=== PATIENT | male | born 1980 | race African-American/Black ===

== ENCOUNTER 2017-11-11 19:52 | Observation (INO) | payer OTHER ==
[2017-11-11 22:24] VITALS: BMI 21.3
[2017-11-11] MEDS ORDERED: HEPARIN SODIUM,PORCINE 5,000 UNIT/ML 1 ML VIAL IV ONE (22:33)
[2017-11-11] MEDS ORDERED: HEPARIN SODIUM,PORCINE 5,000 UNIT/ML 1 ML VIAL IV PRN (22:33)
[2017-11-11] MEDS ORDERED: HEPARIN SOD,PORK IN 0.45% NACL 25,000 UNIT in 0.45% NACL 1 500ML.BAG IV SCH (22:45)
[2017-11-11] MEDS: DILTIAZEM 50 MG in SODIUM CHLORIDE 0.9% 40 ML IV SCH (22:50)
[2017-11-11 22:57] LABS: Basophils % (A) 0 %; Eosinophils # (A) 0.1 k/uL (0-0.7); Eosinophils % (A) 1 %; HCT 51.5 % (39.0-53.0); HGB 16.1 gm/dL (13.0-17.5); Lymphocytes # (A) 0.5 k/uL (1.0-4.8); Lymphocytes % (A) 6 %; MCH 31.7 pg (25.0-35.0); MCHC 31.3 g/dL (31.0-37.0); MCV 101.1 fL (80.0-100.0); Mean Platelet Volume 6.2; Monocytes # (A) 0.1 k/uL (0-1.0); Monocytes % (A) 1 %; Neutrophils # (A) 7.7 k/uL (1.3-7.7); Neutrophils % (A) 91 %; Platelet Count 315 k/uL (150-450); RBC 5.09 m/uL (4.30-5.90); RDW 12.7 % (11.5-15.5); WBC 8.4 k/uL (3.8-10.6)
[2017-11-11 23:08] LABS: Anion Gap 10 mmol/L; Blood Urea Nitrogen 12 mg/dL (9-20); Carbon Dioxide 25 mmol/L (22-30); Chloride 104 mmol/L (98-107); Glucose 178 mg/dL (74-99); Magnesium 1.8 mg/dL (1.6-2.3); Potassium 4.3 mmol/L (3.5-5.1); Sodium 139 mmol/L (137-145)
[2017-11-11 23:09] LABS: INR 1.1 (<1.2); Partial Thromboplastin Time 23.5 sec (22.0-30.0); Prothrombin Time 10.7 sec (9.0-12.0)
[2017-11-12] MEDS: DILTIAZEM 50 MG in SODIUM CHLORIDE 0.9% 40 ML IV SCH ×2 (02:20→06:57)
[2017-11-12 05:34] LABS: Basophils % (A) 0 %; Eosinophils # (A) 0.1 k/uL (0-0.7); Eosinophils % (A) 2 %; HCT 47.6 % (39.0-53.0); HGB 15.3 gm/dL (13.0-17.5); Lymphocytes # (A) 0.6 k/uL (1.0-4.8); Lymphocytes % (A) 9 %; MCH 32.7 pg (25.0-35.0); MCHC 32.2 g/dL (31.0-37.0); MCV 101.5 fL (80.0-100.0); Mean Platelet Volume 6.2; Monocytes # (A) 0.2 k/uL (0-1.0); Monocytes % (A) 3 %; Neutrophils # (A) 6.2 k/uL (1.3-7.7); Neutrophils % (A) 86 %; Platelet Count 295 k/uL (150-450); RBC 4.69 m/uL (4.30-5.90); RDW 12.4 % (11.5-15.5); WBC 7.2 k/uL (3.8-10.6)
[2017-11-12 06:39] LABS: Glucose,Whole Blood 111 mg/dL (75-99)
[2017-11-12] MEDS ORDERED: INSULIN ASPART 100 UNIT/ML 1 ML 10 ML VIAL SQ SCH (07:30)
[2017-11-12] MEDS ORDERED: predniSONE 20 MG TAB PO SCH (09:00)
[2017-11-12] MEDS: IPRATROPIUM-ALBUTEROL 3 ML NEB INHALATION SCH ×3 (09:17→16:17)
[2017-11-12] MEDS: FLUTICASONE 110 MCG INHALER INHALATION SCH ×2 (09:42→21:24)
--- NOTE | 2017-11-12 11:13 | CONS ---
MIGUEL Lozoya is a 37-year-old gentleman with history of asthma who presented to [facility] with shortness of breath and chest tightness. He thought he was having one of his asthma episodes. When they evaluated him there he was found to be in atrial fibrillation with rapid ventricular rate and he was started on IV heparin, Cardizem and transferred to [facility] for further care. At the time of my evaluation this morning, patient is still in atrial fibrillation with heart rate in the 110s. Blood pressure is normal at 120/70, respiratory rate is 16. There is no prior history of coronary artery disease, congestive heart failure or valvular heart disease. There is no prior history of cardiac arrhythmia. PAST MEDICAL HISTORY: Significant for asthma. MEDICATIONS: He apparently takes an inhaler. ALLERGIES: None. FAMILY HISTORY: Family history is significant for cardiac arrhythmia in his younger brother. SOCIAL HISTORY: He denies smoking, ETOH abuse or drug abuse. REVIEW OF SYSTEMS: HEENT is unremarkable. CARDIAC: As described above. RESPIRATORY: As described above. GI: Negative. GENITOURINARY: Negative. ALLERGY/IMMUNOLOGY: Negative. SKIN: Negative. MUSCULOSKELETAL: Negative. ENDOCRINE: Negative. HEMATOLOGIC: Negative. DERM: Negative. CONSTITUTIONAL: Negative. ONCOLOGICAL: Negative. Rest of the system review is not relevant. PHYSICAL EXAMINATION: On exam, patient is comfortable at rest. Afebrile. Heart rate is 110 beats per minute. Blood pressure is 120/72, respiratory rate is 18. Chest exam reveals bilateral occasional rhonchi. Heart exam reveals first and second heart sounds, irregular rhythm. No murmur. Abdomen is soft, nontender. Exam of extremities did not reveal any edema. Peripheral pulses are felt. ASSESSMENT: 1. Persistent atrial fibrillation with rapid ventricular rate. 2. Exacerbation of asthma. PLAN: His TSH is low at 0.357. I am going to check his free T3, T4. I will obtain a 2D echo to evaluate his LV function. Patient had breakfast this morning. I will continue him on heparin and Cardizem. If the LV function is normal, I will start him on Rythmol. If he does not convert to sinus rhythm, I am going to do a FIFI and cardioversion tomorrow morning. MMODL / IJN: [id number] /
[2017-11-12 12:13] LABS: T4, Free (Free Thyroxine) 1.06 ng/dL (0.78-2.19)
--- NOTE | 2017-11-12 12:19 | P.HPIM ---
History of Present Illness This is a pleasant 37 years old male with past medical history of asthma, surgery on the thyroid gland. Presents from [facility] because of feeling unwell with dyspnea and chest discomfort/pressure sensation of 1 week duration. The chest pain central knot radiating felt likely to have a heavy pain. But moderate in severity. In the very base which was noticed to be in A. fib and was started on Cardizem drip. He has with some cough with no phlegm of one-day duration. And left mid abdominal pain since last Sunday about 3/10 in severity. Nonspecific in character. Nonradiating. No associated urinary symptom or change in bowel habits. No nausea or vomiting Review of clamps in the chart and shows WBC 6.3K, hemoglobin 15.8, platelets 282. INR 1.1 d-dimer 0.19 which is within the reference [Ref. 0.19-0.59]. Sodium 141. Potassium 4. Calcium 8.3. Creatinine 1.1. B on 12. Liver function test was unremarkable. Magnesium 1.8. Troponin 0.017 which is within the reference range. Chest x-ray post-: normal chest exam. EKG showing ventricular rate of 155. QTC 452. With no significant ST-T changes Review of Systems CONSTITUTIONAL: No fever, no malaise, no fatigue. HEENT: No recent visual problems or hearing problems. Denied any sore throat. CARDIOVASCULAR: No orthopnea, PND, no palpitations, no syncope. PULMONARY: No shortness of breath, no cough, no hemoptysis. GASTROINTESTINAL: No diarrhea, no nausea, no vomiting, no abdominal pain. Normoactive bowel sounds. NEUROLOGICAL: No headaches, no weakness, no numbness. HEMATOLOGICAL: Denies any bleeding or petechiae. GENITOURINARY: Denies any burning micturition, frequency, or urgency. MUSCULOSKELETAL/RHEUMATOLOGICAL: Denies any joint pain, swelling, or any muscle pain. ENDOCRINE: Denies any polyuria or polydipsia. Past Medical History Past Medical History: Asthma History of Any Multi-Drug Resistant Organisms: None Reported Additional Past Surgical History / Comment(s): Thyroid operation, knee operation and foot operation Past Anesthesia/Blood Transfusion Reactions: No Reported Reaction Past Psychological History: No Psychological Hx Reported Smoking Status: Never smoker - Past Family History Father History Unknown: Yes Mother History Unknown: Yes Medications and Allergies Home Medications Medication Instructions Recorded Confirmed Type No Known Home Medications 11/12/17 11/12/17 History Allergies Allergy/AdvReac Type Severity Reaction Status Date / Time No Known Allergies Allergy Verified 11/12/17 09:46 Physical Exam Vitals: Vital Signs Temp Pulse Pulse Resp BP Pulse Ox 11/12/17 09:32 112 H 11/12/17 09:20 110 H 11/12/17 08:00 97.0 F L 118 H 16 119/71 97 11/12/17 04:00 97.4 F L 121 H 16 124/63 99 11/12/17 00:00 97.1 F L 153 H 16 105/69 99 11/11/17 22:25 140 H 11/11/17 22:01 98.4 F 124 H 18 134/79 98 Intake and Output 11/11/17 11/12/17 11/12/17 22:59 06:59 14:59 Intake Total 362.748 250 Balance 362.748 250 Intake: IV 170 10 0.9 160 Invasive Line 1 10 10 Intake, IV Titration 192.748 Amount Diltiazem 50 mg In Sodium 80.333 Chloride 0.9% 40 ml @ 5 MG/HR 5 mls/hr IV .Q10H [facility] Rx#:[id number] Heparin Sod,Pork in 0.45% 112.415 NaCl 25,000 unit In 0.45 % NaCl 1 500ml.bag @ 12 UNITS/KG/HR 15.26 mls/hr IV .Q24H [facility] Rx#: [id number] Oral 240 Other: Voiding Method Toilet Toilet # Voids 2 Weight 63.6 kg 68.4 kg GENERAL: The patient is alert and oriented x3, not in any acute distress. Well developed, well nourished. HEENT: Pupils are round and equally reacting to light. EOMI. No scleral icterus. No conjunctival pallor. Normocephalic, atraumatic. No pharyngeal erythema. No thyromegaly. CARDIOVASCULAR: S1 and S2 present. No murmurs, rubs, or gallops. PULMONARY: Chest is clear to auscultation, no wheezing or crackles. ABDOMEN: Soft, nontender, nondistended, normoactive bowel sounds. No palpable organomegaly. MUSCULOSKELETAL: No joint swelling or deformity. EXTREMITIES: No cyanosis, clubbing, or pedal edema. NEUROLOGICAL: Gross neurological examination did not reveal any focal deficits. SKIN: No rashes. Results CBC & Chem 7: 11/12/17 05:23 11/11/17 22:46 Labs: Abnormal Lab Results - Last 24 Hours (Table) 11/11/17 11/11/17 11/12/17 Range/Units 22:46 22:46 05:23 MCV 101.1 H (80.0-100.0) fL Lymphocytes # 0.5 L (1.0-4.8) k/uL APTT 35.3 H (22.0-30.0) sec Glucose 178 H (74-99) mg/dL POC Glucose (mg/dL) (75-99) mg/dL TSH (0.465-4.680) mIU/L 11/12/17 11/12/17 11/12/17 Range/Units 05:23 05:23 06:38 MCV 101.5 H (80.0-100.0) fL Lymphocytes # 0.6 L (1.0-4.8) k/uL APTT (22.0-30.0) sec Glucose (74-99) mg/dL POC Glucose (mg/dL) 111 H (75-99) mg/dL TSH 0.357 L (0.465-4.680) mIU/L Thrombosis Risk Factor Assmnt - Choose All That Apply Any of the Below Risk Factors Present?: No Other Risk Factors: No Other congenital or acquired thrombophilia - If yes, enter type in comment: No Thrombosis Risk Factor Assessment Level: Very Low Risk Assessment and Plan Assessment: Tachycardia, possible A. fib with RVR. Chest pain, rule out cardiac cause. Abdominal pain History of asthma: No connective tissue. Plan: This is a pleasant 37 years old male who presents because of possible A. fib with RVR. Patient was started on Cardizem drip. He has cardiology team evaluation. Also ask pulmonary to see him in a few office dyspnea, coughing in the view of history of asthma. Continue same treatment. Continue symptomatic treatment. Resume home medication. DVT and GI prophylaxis. Further recommendations based on the clinical course of the patient DVT prophylaxis: Subcutaneous heparin, currently on heparin drip GI prophylaxis: Pepcid PT/OT: Pending Recommendations based on the clinical course of the patient
[2017-11-12] MEDS ORDERED: PROPAFENONE 150 MG TAB PO STA (12:34)
--- NOTE | 2017-11-12 12:34 | ECHOF ---
Referral Reason:LV function MEASUREMENTS -------- HEIGHT: 172.7 cm WEIGHT: 68.0 kg BP: 124/63 RVIDd: 2.8 cm (< 3.3) IVSd: 1.1 cm (0.6 - 1.1) LVIDd: 3.9 cm (3.9 - 5.3) LVPWd: 1.2 cm (0.6 - 1.1) IVSs: 1.5 cm LVIDs: 2.6 cm LVPWs: 1.5 cm LA Diam: 3.1 cm (2.7 - 3.8) LAESV Index (A-L): 25.45 ml/m Ao Diam: 3.5 cm (2.0 - 3.7) AV Cusp: 2.6 cm (1.5 - 2.6) MV EXCURSION: 23.948 mm (> 18.000) MV EF SLOPE: 191 mm/s (70 - 150) EPSS: 0.4 cm RAP: 5.00 mmHg RVSP: 17.74 mmHg FINDINGS -------- Atrial fibrillation. This was a technically good study. The left ventricular size is normal. There is borderline concentric left ventricular hypertrophy. Overall left ventricular systolic function is low-normal with, an EF between 50 - 55 %. The right ventricle is normal in size. Normal LA size by volume 22+/-6 ml/m2. The right atrium is normal in size. The aortic valve is trileaflet and appears structurally normal. The mitral valve is normal. Mild mitral regurgitation is present. The tricuspid valve appears structurally normal. Mild tricuspid regurgitation present. Right vent ricular systolic pressure is normal at < 35 mmHg. Trace/mild (physiologic) pulmonic regurgitation. The aortic root size is normal. Normal inferior vena cava with normal inspiratory collapse consistent with estimated right atrial pre ssure of 5 mmHg. There is no pericardial effusion. CONCLUSIONS -------- 1. Atrial fibrillation. 2. This was a technically good study. 3. The left ventricular size is normal. 4. There is borderline concentric left ventricular hypertrophy. 5. Overall left ventricular systolic function is low-normal with, an EF between 50 - 55 %. 6. Normal LA size by volume 22+/-6 ml/m2. 7. The aortic valve is trileaflet and appears structurally normal. 8. Mild mitral regurgitation is present. 9. Mild tricuspid regurgitation present. 10. Right ventricular systolic pressure is normal at < 35 mmHg. 11. Trace/mild (physiologic) pulmonic regurgitation. 12. The aortic root size is normal. 13. Normal inferior vena cava with normal inspiratory collapse consistent with estimated right atrial pressure of 5 mmHg. 14. There is no pericardial effusion. [employer]PERATIONS INTELLIGENCE OFFICER: Amaya Pineda RDCS
[2017-11-12] MEDS: APIXABAN 5 MG TAB PO SCH ×2 (13:15→19:53)
--- NOTE | 2017-11-12 18:12 | P.CNPUL ---
History of Present Illness Consult date: 11/12/17 Reason for consult: dyspnea History of present illness: 37-year-old -[place] male patient with history of mild intermittent/ persistent bronchial asthma and a previous history of thyroid surgery many years back, questionable partial thyroidectomy is been experiencing shortness of breath for almost a week. The patient reported increased dyspnea and heart racing. No cough. No sputum production. No angina. No significant wheezing. No pleurisy. He ultimately was getting worse as the patient was becoming more short of breath and he presents himself to [facility] with was found to be in atrial fibrillation with rapid ventricular response. He was placed on a Cardizem drip and he was transferred to [facility]. The patient currently is on a Cardizem drip at 10 mg an hour. At around 1 PM, the patient converted into normal sinus rhythm. The patient is white cell count is not elevated. D-dimer is at 1.1. Chest x-ray done at [facility] was within normal limits. The cardiac enzymes came back negative 3 including troponins. Thyroid function tests are within normal limits. He apparently part is with friends and drinks 15 pack year on partly days only and his last artery was approximately a week ago. No previous history of DVT or pulmonary embolism. Denies having any substance abuse. He works in [place] as a [employer] job. As for his asthma, reports her childhood asthma. He thought his shortness of breath was related to asthma and the patient was using his albuterol inhaler up to 7-8 times a day and this was making her more tachycardic. No swelling lower extremities. No other complaints otherwise for now. No previous hospitalization for any asthma related complications. No his of systemic steroids for bronchial asthma. No other complaints otherwise for now Review of Systems Constitutional: Denies chills, Denies fever Eyes: denies blurred vision, denies bulging eye, denies decreased vision, denies diplopia Ears: deny: decreased hearing, ear discharge, earache, tinnitus Ears, nose, mouth and throat: Denies headache, Denies sore throat Cardiovascular: Reports dyspnea on exertion, Reports rapid heart beat Respiratory: Reports dyspnea Gastrointestinal: Denies abdominal pain, Denies diarrhea, Denies nausea, Denies vomiting Genitourinary: Reports as per HPI Musculoskeletal: Denies myalgias Musculoskeletal: absent: ankle pain, ankle stiffness, ankle swelling Integumentary: Denies pruritus, Denies rash Neurological: Denies numbness, Denies weakness Psychiatric: Reports as per HPI Endocrine: Denies fatigue, Denies weight change Hematologic/Lymphatic: Reports as per HPI Allergic/Immunologic: Reports as per HPI Past Medical History Past Medical History: Asthma History of Any Multi-Drug Resistant Organisms: None Reported Additional Past Surgical History / Comment(s): Thyroid operation, knee operation and foot operation Past Anesthesia/Blood Transfusion Reactions: No Reported Reaction Past Psychological History: No Psychological Hx Reported Smoking Status: Never smoker - Past Family History Father History Unknown: Yes Mother History Unknown: Yes Medications and Allergies Home Medications Medication Instructions Recorded Confirmed Type No Known Home Medications 11/12/17 11/12/17 History Allergies Allergy/AdvReac Type Severity Reaction Status Date / Time No Known Allergies Allergy Verified 11/12/17 09:46 Physical Exam Vitals: Vital Signs Temp Pulse Pulse Resp BP Pulse Ox 11/12/17 16:31 84 11/12/17 16:17 88 11/12/17 16:00 97.2 F L 87 16 122/78 97 11/12/17 13:12 100 11/12/17 13:00 100 11/12/17 12:00 97.1 F L 91 16 125/82 97 11/12/17 09:32 112 H 11/12/17 09:20 110 H 11/12/17 08:00 97.0 F L 118 H 16 119/71 97 11/12/17 04:00 97.4 F L 121 H 16 124/63 99 11/12/17 00:00 97.1 F L 153 H 16 105/69 99 11/11/17 22:25 140 H 11/11/17 22:01 98.4 F 124 H 18 134/79 98 Intake and Output 11/12/17 11/12/17 11/12/17 06:59 14:59 22:59 Intake Total 362.748 600 250 Balance 362.748 600 250 Intake: IV 170 120 10 0.9 160 100 Invasive Line 1 10 20 10 Intake, IV Titration 192.748 Amount Diltiazem 50 mg In Sodium 80.333 Chloride 0.9% 40 ml @ 5 MG/HR 5 mls/hr IV .Q10H [facility] Rx#:[id number] Heparin Sod,Pork in 0.45% 112.415 NaCl 25,000 unit In 0.45 % NaCl 1 500ml.bag @ 12 UNITS/KG/HR 15.26 mls/hr IV .Q24H [facility] Rx#: [id number] Oral 480 240 Other: Voiding Method Toilet # Voids 2 1 Weight 68.4 kg The patient appeared well nourished and normally developed. Vital signs as documented. Head exam is unremarkable. No scleral icterus or corneal arcus noted. Neck is without jugular venous distension, thyromegaly, or carotid bruits. Carotid upstrokes are brisk bilaterally. Lungs are clear to auscultation and percussion. Cardiac exam reveals the PMI to be normally sized and situated. Rhythm is regular. First and second heart sounds normal. No murmurs, rubs or gallops. Abdominal exam reveals normal bowel sounds, no masses , no organomegaly and no aortic enlargement. Extremities are nonedematous and both femoral and pedal pulses are normal. Skin the patient has a scar of the previous thyroid surgery over the anterior neck. Otherwise the rest of the skin examination is within normal limits. Neurologically the patient is awake and alert and there is no focal neurological deficits. Results - Laboratory Findings CBC and BMP: 11/12/17 05:23 11/11/17 22:46 PT/INR, D-dimer PT 10.7 sec (9.0-12.0) 11/11/17 22:46 INR 1.1 (<1.2) 11/11/17 22:46 Abnormal lab findings: Abnormal Labs 11/11/17 11/11/17 11/12/17 22:46 22:46 05:23 MCV 101.1 H Lymphocytes # 0.5 L APTT 35.3 H Glucose 178 H POC Glucose (mg/dL) TSH 11/12/17 11/12/17 11/12/17 05:23 05:23 06:38 MCV 101.5 H Lymphocytes # 0.6 L APTT Glucose POC Glucose (mg/dL) 111 H TSH 0.357 L 11/12/17 10:55 MCV Lymphocytes # APTT 35.2 H Glucose POC Glucose (mg/dL) TSH Assessment and Plan Plan: Assessment 1 new-onset atrial fibrillation with rapid ventricular response. Echocardiogram is within normal limits. Thyroid function tests are also within normal limits. The patient converted spontaneously and patient is currently on Cardizem drip at 10 mg an hour. The patient was also started on anticoagulation. 2 chronic bronchial asthma currently inactive in stable 3 shortness of breath secondary to #1 Plan Management of atrial fibrillation per cardiology. Thyroid function test is within normal limits. Echocardiogram is within normal limits. Outpatient asthma management and use of inhaled corticosteroids is reasonable with a rapid prednisone burst taper at time of discharge. Kept on the albuterol to when necessary only without the need to put scheduled medications special that the patient's lungs are clear and the patient does not have any active bronchospasm wheezing.
[2017-11-12] MEDS: FAMOTIDINE 20 MG/2 ML VIAL IV SCH (19:52)
[2017-11-12] MEDS ORDERED: MELATONIN 3 MG TABLET PO PRN (20:57)
[2017-11-13] MEDS: DILTIAZEM 50 MG in SODIUM CHLORIDE 0.9% 40 ML IV SCH (00:11)
[2017-11-13 00:23] VITALS: RESP 16
[2017-11-13] MEDS: IPRATROPIUM-ALBUTEROL 3 ML NEB INHALATION PRN ×2 (03:38→08:28)
[2017-11-13 07:25] LABS: Basophils % (A) 0 %; Eosinophils # (A) 0.1 k/uL (0-0.7); Eosinophils % (A) 1 %; HCT 45.7 % (39.0-53.0); HGB 14.8 gm/dL (13.0-17.5); Lymphocytes # (A) 1.8 k/uL (1.0-4.8); Lymphocytes % (A) 17 %; MCH 32.7 pg (25.0-35.0); MCHC 32.4 g/dL (31.0-37.0); MCV 100.9 fL (80.0-100.0); Mean Platelet Volume 6.5; Monocytes # (A) 0.7 k/uL (0-1.0); Monocytes % (A) 7 %; Neutrophils # (A) 7.5 k/uL (1.3-7.7); Neutrophils % (A) 74 %; Platelet Count 263 k/uL (150-450); RBC 4.52 m/uL (4.30-5.90); RDW 12.7 % (11.5-15.5); WBC 10.2 k/uL (3.8-10.6)
[2017-11-13] MEDS: FLUTICASONE 110 MCG INHALER INHALATION SCH (08:28)
[2017-11-13] MEDS ORDERED: predniSONE 10 MG TAB PO SCH (09:00)
[2017-11-13] MEDS ORDERED: PROPAFENONE 150 MG TAB PO SCH (09:00)
[2017-11-13] MEDS: APIXABAN 5 MG TAB PO SCH (09:07)
[2017-11-13] MEDS: FAMOTIDINE 20 MG/2 ML VIAL IV SCH (09:07)
--- NOTE | 2017-11-13 12:27 | P.PN ---
Subjective Progress Note Date: 11/13/17 Principal diagnosis: New onset A. fib, chronic bronchial asthma 37-year-old -[place] male patient with history of mild intermittent/ persistent bronchial asthma and a previous history of thyroid surgery many years back, questionable partial thyroidectomy is been experiencing shortness of breath for almost a week. The patient reported increased dyspnea and heart racing. No cough. No sputum production. No angina. No significant wheezing. No pleurisy. He ultimately was getting worse as the patient was becoming more short of breath and he presents himself to [facility] with was found to be in atrial fibrillation with rapid ventricular response. He was placed on a Cardizem drip and he was transferred to [facility]. The patient currently is on a Cardizem drip at 10 mg an hour. At around 1 PM, the patient converted into normal sinus rhythm. The patient is white cell count is not elevated. D-dimer is at 1.1. Chest x-ray done at [facility] was within normal limits. The cardiac enzymes came back negative 3 including troponins. Thyroid function tests are within normal limits. He apparently part is with friends and drinks 15 pack year on partly days only and his last artery was approximately a week ago. No previous history of DVT or pulmonary embolism. Denies having any substance abuse. He works in [place] as a [employer] job. As for his asthma, reports her childhood asthma. He thought his shortness of breath was related to asthma and the patient was using his albuterol inhaler up to 7-8 times a day and this was making her more tachycardic. No swelling lower extremities. No other complaints otherwise for now. No previous hospitalization for any asthma related complications. No his of systemic steroids for bronchial asthma. No other complaints otherwise for now On 11/13/2017 patient seen in follow-up on selective care unit. We'll order to sinus rhythm last night, and he remains in sinus rhythm. His rate is controlled , 88-90 BPM, he is afebrile, hemodynamically stable, room air pulse ox is 98%, no shortness of breath or chest pain. No wheezing, or coughing. Patient was started on Eliquis 5 mg twice daily, Rythmol by cardiology. From our standpoint patient is stable, he remains on prednisone at 30 mg daily, Flovent twice daily, and nebulized bronchodilators on as-needed basis. Patient is being discharged home today. Follow-up in the office with Dr. Voss in one week. Objective - Vital Signs Vital signs: Vital Signs Temp 97.4 F L 11/13/17 08:00 Pulse 90 11/13/17 08:47 Resp 16 11/13/17 08:29 BP 138/93 11/13/17 08:00 Pulse Ox 98 11/13/17 08:00 Intake & Output 11/12/17 11/13/17 11/13/17 18:59 06:59 18:59 Intake Total 900 20 Balance 900 20 Weight 68.2 kg Intake: IV 130 20 0.9 100 Invasive Line 1 30 10 Invasive Line 2 10 Intake, IV Titration 50 Amount Diltiazem 50 mg In Sodium 50 Chloride 0.9% 40 ml @ 5 MG/HR 5 mls/hr IV .Q10H [facility] Rx#:[id number] Oral 720 Other: Voiding Method Toilet # Voids 1 1 - Exam GENERAL EXAM: Alert, wasn't 37-year-old -[place] male comfortable in no apparent distress. HEAD: Normocephalic/atraumatic. EYES: Normal reaction of pupils, equal size. Conjunctiva pink, sclera white. NOSE: Clear with pink turbinates. THROAT: No erythema or exudates. NECK: No masses, no JVD, no thyroid enlargement, no adenopathy. CHEST: No chest wall deformity. Symmetrical expansion. LUNGS: Equal air entry with no crackles, wheeze, rhonchi or dullness. CVS: Regular rate and rhythm, normal S1 and S2, no gallops, no murmurs, no rubs ABDOMEN: Soft, nontender. No hepatosplenomegaly, normal bowel sounds, no guarding or rigidity. EXTREMITIES: No clubbing, no edema, no cyanosis, 2+ pulses and upper and lower extremities. MUSCULOSKELETAL: Muscle strength and tone normal. SPINE: No scoliosis or deformity SKIN: No rashes CENTRAL NERVOUS SYSTEM: Alert and oriented -3. No focal deficits, tone is normal in all 4 extremities. PSYCHIATRIC: Alert and oriented -3. Appropriate affect. Intact judgment and insight. - Labs CBC & Chem 7: 11/13/17 06:53 11/11/17 22:46 Labs: Abnormal Lab Results - Last 24 Hours (Table) 11/13/17 Range/Units 06:53 MCV 100.9 H (80.0-100.0) fL Assessment and Plan Plan: Assessment: 1 new-onset atrial fibrillation with rapid ventricular response. Echocardiogram is within normal limits. Thyroid function tests are also within normal limits. The patient converted spontaneously and patient is currently on Cardizem drip at 10 mg an hour. The patient was also started on anticoagulation. 2 chronic bronchial asthma currently inactive in stable 3 shortness of breath secondary to #1 Plan: Patient is stable for discharge from pulmonary perspective. No shortness of breath, no coughing, no wheezing, he is on room air, he is ambulating, no pulmonary complaints. He remains in sinus rhythm, he was started on Eliquis and Rythmol by cardiology. Patient is stable for discharge home on Flovent inhaler twice daily, in addition to his Proventil on as needed basis. Patient will need to complete his prednisone taper. Follow-up with Dr. Voss in the office in one week. I performed a history & physical examination of the patient and discussed their management with my nurse practitioner, Deja Grossman. I reviewed the nurse practitioner's note and agree with the documented findings and plan of care. Lung sounds are essentially clear. The findings and the impression was discussed with the patient. I attest to the documentation by the nurse practitioner. Time with Patient: Less than 30
--- NOTE | 2017-11-13 12:34 | P.PN ---
Subjective Progress Note Date: 11/13/17 37-year-old -[place] male patient with history of mild intermittent/ persistent bronchial asthma and a previous history of thyroid surgery many years back, questionable partial thyroidectomy is been experiencing shortness of breath for almost a week. The patient reported increased dyspnea and heart racing. He presented to [facility] and was found to be in atrial fibrillation with a rapid ventricular response, initiated on a Cardizem drip and transferred here. Patient was seen in consultation yesterday by Dr. Cedillo. His echo revealed a normal left ventricular systolic function and patient was given a dose of 300 mg of Rythmol yesterday. He converted last evening to normal sinus rhythm and remains in a normal sinus rhythm this morning. For anticoagulation which she is covered for, we will also start the patient on Rythmol 150 mg by mouth 3 times a day today. Overall the patient feels well, states that his breathing is stable. No palpitations. Blood pressure 138/90 with a heart rate in the 80s, 98% on room air. TSH level was 0.35, T4 and T3 normal. Objective - Vital Signs Vital signs: Vital Signs Temp 97.4 F L 11/13/17 08:00 Pulse 90 11/13/17 08:47 Resp 16 11/13/17 08:29 BP 138/93 11/13/17 08:00 Pulse Ox 98 11/13/17 08:00 Intake & Output 11/12/17 11/13/17 11/13/17 18:59 06:59 18:59 Intake Total 900 20 Balance 900 20 Weight 68.2 kg Intake: IV 130 20 0.9 100 Invasive Line 1 30 10 Invasive Line 2 10 Intake, IV Titration 50 Amount Diltiazem 50 mg In Sodium 50 Chloride 0.9% 40 ml @ 5 MG/HR 5 mls/hr IV .Q10H PANKAJ Rx#:[id number] Oral 720 Other: Voiding Method Toilet # Voids 1 1 - Exam PHYSICAL EXAMINATION: GENERAL: 37-year-old -[place] gentleman in no acute distress at the time of my examination HEENT: Head is atraumatic, normocephalic. Pupils equal, round. Sclera anicteric. Conjunctiva are clear. Mucous membranes of the mouth are moist. Neck is supple. There is no elevated jugular venous pressure. No carotid bruit is heard. HEART EXAMINATION: Heart S1, S2 normal. No murmur or gallop heard. CHEST EXAMINATION: Lungs are clear to auscultation and precussion. No chest wall tenderness is noted on palpation or with deep breathing. ABDOMEN: Soft, nontender. Bowel sounds are heard. No organomegaly noted. EXTREMITIES: 2+ peripheral pulses with no evidence of peripheral edema and no calf tenderness noted. NEUROLOGIC patient is awake, alert and oriented X3. . - Labs CBC & Chem 7: 11/13/17 06:53 11/11/17 22:46 Labs: Abnormal Lab Results - Last 24 Hours (Table) 11/13/17 Range/Units 06:53 MCV 100.9 H (80.0-100.0) fL Assessment and Plan Plan: Assessment and plan #1 atrial fibrillation with rapid ventricular response, paroxysmal #2 asthma exacerbation Plan Echocardiogram with Doppler study was performed which revealed a normal left ventricular systolic function. We will put the patient on Rythmol 150 mg by mouth every 8 hourly today. Continue Eliquis 5 mg one tablet by mouth twice a day which the patient has coverage for. A follow-up appointment will be made in the office post discharge. DNP note has been reviewed, I agree with a documented findings and plan of care. Patient was seen and examined.
--- NOTE | 2017-11-13 13:14 | P.DS ---
Providers Date of admission: 11/11/17 21:58 Attending physician: Lisa Joseph Consults: 11/11/17 22:26 Consult Physician Routine Consulting Provider: Lalit Soto Consult Reason/Comments: new onset A-Fib RVR Do you want consulting provider notified?: Yes Placement Type Exists?: Yes 11/12/17 12:04 Consult Physician Routine Consulting Provider: Michelle Voss Consult Reason/Comments: asthma Do you want consulting provider notified?: Yes Primary care physician: Stated None Hospital Course: This is a pleasant 37 years old male with past medical history of asthma, surgery on the thyroid gland. Presents from [facility] because of feeling unwell with dyspnea and chest discomfort/pressure sensation of 1 week duration. The chest pain central not radiating felt likely to have a heavy pain. But moderate in severity. In the very base which was noticed to be in A. fib and was started on Cardizem drip. Patient dyspnea, racing heart and pain are resolving and significantly improved. Patient has some abdominal pain which is resolved. Patient has been evaluated by equipment planner for his A. fib yesterday and was started on Rythmol, patient rhythm switched back to sinus rhythm, currently patient heart rate is controlled. Discussed the case with equipment planner most likely going to be discharged with Rythmol and Eliquis. Risks benefits and alternative including but not limited to the risk of brain bleed, GI bleed, organ dysfunction and or are explained to the patient and he verbalized understanding and acceptance to continue with the same treatment. Pulmonary evaluation is recommended for his asthma and recommended short course of steroids. His prednisone dose was lower today from 40 to 30. Artificial Cherry Maker evaluated the patient also and recommended tapered steroids. Patient is breathing looks at baseline, with no tachypnea. And no expiratory wheezing on chest auscultation. Patient was cleared by cardiology and pulmonary teams for discharge. Patient attempted to his baseline and feels ready to be discharged Management plan for his problem was discussed with the patient and he verbalized understanding and acceptance Patient was found stable and can be discharged home however he needs follow-up as an outpatient. Patient told me he is going to call Dr. Salinas's his PCP and make an appointment in 1 week as directed. And he agrees to follow up with the cardiology, pcp and pulmonary teams at their offices and he agrees with the date and time appointments physical exam Gen.: Patient alert awake and oriented X 3, NOT IN DISTRESS CVS: s1-s2, RRR, no murmur CHEST:bilateral CTA, no wheezing or crepitation Abdomen: Soft, no tenderness, no distention, positive bowel sounds Extremities: No leg edema or induration Time spent more than 35 minutes Plan - Discharge Summary New Discharge Prescriptions: New Apixaban [Eliquis] 5 mg PO BID #60 tab Propafenone [Rythmol] 150 mg PO TID #90 tab Fluticasone Propionate [Flovent Hfa 110mcg] 2 puff INHALATION BID 30 Days #1 inhaler predniSONE 10 mg PO DIRECTED #17 tab Albuterol Sulfate [Proventil Hfa] 1 - 2 puff INHALATION Q6HR PRN 30 Days #1 inhaler PRN Reason: Dyspnea Discharge Medication List Albuterol Sulfate [Proventil Hfa] 1 - 2 puff INHALATION Q6HR PRN 30 Days #1 inhaler 11/13/17 [Rx] Apixaban [Eliquis] 5 mg PO BID #60 tab 11/13/17 [Rx] Fluticasone Propionate [Flovent Hfa 110mcg] 2 puff INHALATION BID 30 Days #1 inhaler 11/13/17 [Rx] Propafenone [Rythmol] 150 mg PO TID #90 tab 11/13/17 [Rx] predniSONE 10 mg PO DIRECTED #17 tab 11/13/17 [Rx] Follow up Appointment(s)/Referral(s): Lula Orozco NPC [REFERRING] - 11/19/17 10:15 am Yasir Cedillo MD [STAFF PHYSICIAN] - 11/30/17 3:30 pm (At [facility] office.) Michelle Voss MD [STAFF PHYSICIAN] - 11/30/17 1:00 pm (Pulmonology- asthma) Patient Instructions/Handouts: A-fib (Atrial Fibrillation) (DC), Heart Healthy Diet (DC), Safe Use of Anticoagulants (DC) Activity/Diet/Wound Care/Special Instructions: Cardiac diet Activity: Limited till you see your doctor Discharge/Stand Alone Forms: Work/Release Restrictions Form Discharge Disposition: HOME SELF-CARE
[2017-11-13 13:21] VITALS: BP 124/88; PULSE 96; TEMP 97.2
[2017-11-14] MEDS ORDERED: FAMOTIDINE 20 MG TAB PO SCH (09:00)
--- NOTE | 2017-11-15 13:30 | CDI ---
Last Revision, January 2017 Documentation Clarification Form Date: 11/15/2017 1:16:02 PM From: Kelly Bailey PhoneIf you have a question about this query, please contact Myra Alan, Director Of Physician Practices at [phone] between 8am and 5pm. Admit Date: 11/11/2017 9:58:00 PM Patient Name: Darell Sharma Visit Number: [id number] Discharge Date: 11/14/17 ATTENTION: The Clinical Documentation Specialists (CDI) and [facility] Coding Staff appreciate your assistance in clarifying documentation. Please respond to the clarification below the line at the bottom and electronically sign. The CDI & [facility] Coding staff will review the response and follow-up if needed. Please note: Queries are made part of the Legal Health Record. If you have any questions, please contact the author of this message via ITS. Jose Alberto Sampson MD Conflicting documentation of asthma. Pulmonary consult documents chronic bronchial asthma currently inactive and cardiology consult documents acute exacerbation of asthma. Please clarify History/Risk Factors: patient presents with new onset atrial fib and history of asthma Clinical Indicators: dyspnea chest discomfort, pressure, cough Treatment: Prednisone In your opinion what is the most clinically appropriate diagnosis for this patient? chronic bronchial asthma exacerbation of asthma Other explanation of clinical findings Unable to determine (no explanation for clinical findings) chronic bronchial asthma MTDD
== END 2017-11-13 13:45 | disposition home or self-care (01) ==
LOC: 6SEL 21:58 → INTOOBSV 21:58 → 6SEL 11-12 06:04 → UNDODISIN 11-13 13:45
PROVIDERS: ADMIT Internal Medicine; ATTEND Internal Medicine
DX: I48.1 Persistent atrial fibrillation (principal); R10.9 Unspecified abdominal pain; J45.909 Unspecified asthma, uncomplicated; Z82.49 Family history of ischemic heart disease and other diseases of the circulatory system
CPT/HCPCS: 80048; 83735; 84439; 84443; 84481; 84484; 85025; 85610; 85730; 93306; 94640; 96365; 96366; 96374; 96375; 96376